=== PATIENT | female | born 1955 | race Caucasian/White ===

== ENCOUNTER 2020-07-08 06:07 | Day surgery (SDC) | payer BC ==
[2020-07-06 10:19] LABS: HEMATOCRIT 45.5 % (36.0-48.0); HEMOGLOBIN 15.3 g/dL (12-16); MCH 32.3 pg (26.0-34.0); MCHC 33.6 g/dL (31.0-37.0); MCV 96.2 fL (80.0-100.0); RBC 4.73 10x6/uL (4.00-5.40); RDW 12.6 % (11.5-14.5); WBC 6.4 10x3/uL (4.8-10.8)
[~2020-07-08] VITALS: Ht 170.2 cm; Wt 59.9 kg
--- NOTE | ~2020-07-08 | OP ---
PATIENT NAME: DAREK ALEXANDER MEDICAL RECORD: [id number] :57 LOCATION:D.OPS ADMISSION DATE: SURGEON: ROLANDO PHILIPPE DPM DATE OF OPERATION: 07/08/2020 PREOPERATIVE DIAGNOSES: 1. HAV, right foot. 2. Instability, right first met cuneiform joint. 3. Plantar plate rupture, right second MPJ. 4. Fracture, right second metatarsal. 5. Hammertoe, right second digit. POSTOPERATIVE DIAGNOSES: 1. HAV, right foot. 2. Instability, right first met cuneiform joint. 3. Plantar plate rupture, right second MPJ. 4. Fracture, right second metatarsal. 5. Hammertoe, right second digit. PROCEDURES 1. Azul bunionectomy, right foot. 2. First met cuneiform joint fusion, right foot. 3. Plantar plate repair, right second MPJ. 4. ORIF, right second metatarsal fracture. 5. PIPJ fusion, right second digit. ANESTHESIA: Preoperative popliteal block per the anesthesia department as well as intraoperative general anesthesia. HEMOSTASIS: Right thigh tourniquet at 350 mmHg. PREOPERATIVE DETAILS: The patient was taken to the OR and placed on the operating table in supine position. This was followed by induction of general anesthesia. The right extremity was then prepped and draped in usual aseptic technique followed by exsanguination and inflation of tourniquet. DESCRIPTION OF PROCEDURE #1: Azul bunionectomy, right foot. A 15 blade was used to create an incision from the dorsal aspect of the medial cuneiform distally to the base of proximal phalanx of the hallux. The incision was deepened down through subcutaneous tissue to the first MPJ and an inverted L capsulotomy was performed. The medial capsular flap was reflected and the head of the first metatarsal was delivered. A sagittal saw was used to resect the medial eminence. Attention then directed to the first interspace where a lateral release was performed. Good clinical reduction of lateral contracture was verified. DESCRIPTION OF PROCEDURE #2: First met cuneiform joint fusion. The incision as described in #1 was carried down to the first met cuneiform joint. The joint was exposed. A sagittal saw was used to resect the joint. Temporary fixation was placed and a 5-hole plate with 1 screw crossing through the plate and across the fusion site was placed with excellent rigid internal fixation and C-arm used to verify good alignment of the first ray. A 2-0 Vicryl was then used to close the joint capsule as well as the deep tissue. A 4-0 Rapide was used to reapproximate the subcutaneous tissue and 4-0 Rapide was used to close the skin in a subcuticular technique followed by Lauren. OPERATIVE REPORT [id number] DAREK ALEXANDER DESCRIPTION OF PROCEDURE #3: Plantar plate repair, right second MPJ. A 15 blade was used to create a curvilinear incision from the dorsal aspect of the second metatarsal on top of the PIPJ of the second digit. The incision was deepened down through subcutaneous tissue to the extensor longus tendon, which was transected in a Z fashion. This gave access to the second MPJ where a linear capsulotomy was performed. At this time, the joint was delivered. A McGlamry scoop elevator was used to free the plantar structures. A K-wire was then placed in the distal aspect of the second metatarsal as well as the middle of the proximal phalanx of the digit. A wire retractor was placed over the wires and the joint was distracted. There was noted to be a significant tear in the medial aspect of the plantar plate. A 15 blade was used to complete the tear. At this time, FiberWire was passed through the plantar plate and 2 small drill holes were made in the base of the proximal phalanx of the second digit and the FiberWire was passed up through the small drill holes. At this time, we moved onto the 4th procedure. DESCRIPTION OF PROCEDURE #4: ORIF, second metatarsal fracture. The distal shaft fracture of the second metatarsal was isolated. The rough and bony edges were freshened, placed in proper alignment, and a 4-hole plate was placed across the fracture site with excellent rigid internal fixation and verified good alignment of the second metatarsal utilizing the C-arm. At this time, the plantar plate repair was finalized by holding the digit in a slightly plantarflexed position while I tied surgeon's knots of the FiberWire passed up to the proximal phalanx. This allowed excellent reduction of the dorsal contracture of the phalanx on the metatarsal head. DESCRIPTION OF PROCEDURE #5: PIPJ fusion, right second digit. Utilizing the incision as described above, the second digit DIPJ was delivered. A sagittal saw was used to resect both the head of the proximal phalanx and base of middle phalanx. Drill holes were made and the hammer graft was placed in the proximal aspect first and then in the middle phalanx of the second digit. Excellent alignment was noted as well as rigidity. At this time, the wound was flushed. The joint capsule of second MPJ was repaired with 2-0 Vicryl, the extensor longus tendon was repaired with 4-0 Rapide, the subcutaneous tissue was reapproximated with 4-0 Rapide, and the skin was closed with 4-0 Rapide in a subcuticular technique followed by Dermabond. Adaptic, 4 x 4, and Conform were used to dress the wound followed by application of modified Sheriff compression dressing. Tourniquet was deflated. POSTOPERATIVE DETAILS: The patient tolerated the procedure well and left the OR with vital signs stable and vascular status at preoperative levels. The patient was transferred to recovery in stable condition. NTS:[id number] Voice Confirmation ID: [id number] DOCUMENT ID: [id number] ROLANDO PHILIPPE DPM CC: [id number] DICTATION DATE: 07/08/20 1246 ADOLESCENT COUNSELOR: 07/08/[id number] [facility] 07/08/20 [id number] [place] [address]
[~2020-07-08 06:07] MED LIST: ADVIL200 MG; ESTRACE 0.5 MG0.5 MG PO; VITAMIN D1000 UNI1 PO
[2020-07-08 07:13] VITALS: BP 99/74; Ht 170.2 cm; Wt 59.9 kg
--- NOTE | 2020-07-08 11:03 | NUR ---
POPLITEAL BLOCK PLACED BY ANESTHESIA IN OUTPATIENTS, BAMBI.
--- NOTE | 2020-07-08 15:14 | NUR ---
1430 MEDICATED FOR PAIN 1500 VOIDED WHEN UP WITH WALKER.INSTRUCTIONS GIVEN AND IV REMOVED
== END 2020-07-08 15:10 | disposition home or self-care (01) ==
LOC: D.OPS 06:07
PROVIDERS: Anesthesiology; ATTEND Podiatrist
DX: M20.11 Hallux valgus (acquired), right foot (principal); M25.374 Other instability, right foot; S92.321A Displaced fracture of second metatarsal bone, right foot, initial encounter for closed fracture; X58.XXXA Exposure to other specified factors, initial encounter; M20.41 Other hammer toe(s) (acquired), right foot